=== PATIENT | female | born 2000 | race Caucasian/White ===

== ENCOUNTER 2021-07-09 07:40 | Outpatient (CLI) | payer OTHER ==
[~2021-07-09] VITALS: Ht 149.9 cm; Wt 86.8 kg
[~2021-07-09 07:40] MED LIST: UNRESOLVED CLARIFICATION ENTRY XX SCH
[2021-07-09] MEDS ORDERED: IRON SUCROSE 300 MG in NS 250 ML OVER 90 MIN. IV ONE (08:00)
[2021-07-09 08:05] VITALS: BP 133/75
[2021-07-09 08:44] VITALS: BP 132/70
[2021-07-09 09:50] VITALS: BP 140/66
== END 2021-07-09 10:00 | disposition home or self-care (01) ==
LOC: M INFU 07:40
PROVIDERS: ATTEND Registered Nurse
DX: O99.013 Anemia complicating pregnancy, third trimester (principal); D50.9 Iron deficiency anemia, unspecified; Z3A.37 37 weeks gestation of pregnancy
CPT/HCPCS: 96365; J1756

== ENCOUNTER 2021-07-11 13:28 | Outpatient (CLI) | payer OTHER ==
[~2021-07-11] VITALS: Ht 149.9 cm; Wt 86.7 kg
[2021-07-11 13:46] VITALS: BP 127/69
[2021-07-11] MEDS ORDERED: PRENTAB9 PO (13:48)
[2021-07-11] MEDS ORDERED: HOME MED LIST COMPLETE! XX SCH (13:50)
== END 2021-07-11 14:29 | disposition home or self-care (01) ==
LOC: M LDO 13:28
PROVIDERS: ATTEND Obstetrics & Gynecology
DX: O36.8130 Decreased fetal movements, third trimester, not applicable or unspecified (principal); Z3A.38 38 weeks gestation of pregnancy
CPT/HCPCS: 59025; 76815; G0463

== ENCOUNTER 2021-07-16 08:31 | Outpatient (CLI) | payer OTHER ==
[~2021-07-16] VITALS: Ht 149.9 cm; Wt 86.8 kg
[~2021-07-16 08:31] MED LIST changes: +IRON SUCROSE 300 MG in NS 250 ML OVER 90 MIN. IV ONE; +PRENTAB9 PO; -UNRESOLVED CLARIFICATION ENTRY XX SCH
[2021-07-16 09:04] VITALS: BP 136/64
[2021-07-16 10:45] VITALS: BP 146/67
== END 2021-07-16 10:45 | disposition home or self-care (01) ==
LOC: M INFU 08:31
PROVIDERS: ATTEND Registered Nurse
DX: D50.9 Iron deficiency anemia, unspecified (principal); Z3A.37 37 weeks gestation of pregnancy
CPT/HCPCS: 96365; 96366; J1756

== ENCOUNTER 2021-07-23 15:25 | Outpatient (CLI) | payer OTHER ==
[~2021-07-23] VITALS: Ht 149.9 cm; Wt 87.0 kg
[2021-07-23] MEDS ORDERED: IRON SUCROSE 300 MG in NS 250 ML OVER 90 MIN. IV ONE (15:30)
[2021-07-23 16:12] VITALS: BP 144/61
[2021-07-23 17:23] VITALS: BP 119/68
== END 2021-07-23 17:20 | disposition home or self-care (01) ==
LOC: M INFU 15:25
PROVIDERS: ATTEND Registered Nurse
DX: D50.9 Iron deficiency anemia, unspecified (principal); Z3A.37 37 weeks gestation of pregnancy
CPT/HCPCS: 96365; J1756

== ENCOUNTER 2021-07-24 11:58 | Inpatient (IN) | payer OTHER ==
[~2021-07-24] VITALS: Ht 149.9 cm; Wt 86.3 kg
[~2021-07-24 11:58] MED LIST changes: -IRON SUCROSE 300 MG in NS 250 ML OVER 90 MIN. IV ONE
[2021-07-24] MEDS ORDERED: OXYTOCIN DRIP 30 UNITS in IV 1 EA IV PRN ×4 (12:20)
[2021-07-24] MEDS ORDERED: METHYLERGONOVINE MALEATE 0.2 MG/ML VIAL (J2210) IM PRN (12:20)
[2021-07-24] MEDS ORDERED: LIDOCAINE 1% MDV 20ML VIAL INFIL PRN (12:20)
[2021-07-24] MEDS ORDERED: CARBOPROST TROMETHAMINE 250 MCG/ML AMP IM PRN (12:20)
[2021-07-24 12:25] VITALS: BP 117/62
[2021-07-24] MEDS ORDERED: HOME MED LIST COMPLETE! XX SCH (12:30)
[2021-07-24 13:22] LABS: HEMATOCRIT 30.9 % (36.0-47.0); HEMOGLOBIN 9.2 g/dl (12.0-15.5); MEAN CORPUSCULAR HEMOGLOBIN 21.5 pg (27.0-33.0); MEAN CORPUSCULAR HGB CONC 29.8 g/dl (32.0-36.5); MEAN CORPUSCULAR VOLUME 72.2 fl (80.0-96.0); PLATELET COUNT, AUTOMATED 228 10^3/uL (150-450); RED BLOOD COUNT 4.28 10^6/uL (4.00-5.40); WHITE BLOOD COUNT 7.1 10^3/uL (4.0-10.0)
[2021-07-24] MEDS ORDERED: LACTATED RINGER'S 1000 ML IV STA (13:57)
[2021-07-24] MEDS ORDERED: LR 1,000 ML IV SCH (14:00)
[2021-07-24] MEDS ORDERED: OXYTOCIN DRIP 30 UNITS in IV 1 EA IV SCH (14:00)
[2021-07-24] MEDS ORDERED: miSOPROStol 50MCG 1/2 TABLET PO ONE (14:00)
[2021-07-24 15:02] VITALS: BP 118/59
[2021-07-24 15:59] VITALS: BP 138/83
[2021-07-24 16:56] VITALS: BP 109/58
[2021-07-24] MEDS ORDERED: miSOPROStol 50MCG 1/2 TABLET PO SCH (19:30)
[2021-07-25] VITALS (61 sets, daily range): BP systolic 96–146; BP diastolic 51–87
[2021-07-25] MEDS ORDERED: PROMETHAZINE 25MG/ML 1ML VIAL IV ONE (00:50)
[2021-07-25] MEDS ORDERED: BUTORPHANOL 2 MG/ML INJ (J0595) IV ONE (00:50)
[2021-07-25] MEDS: LR 1,000 ML IV SCH ×2 (10:14→13:21)
[2021-07-25] MEDS ORDERED: OXYTOCIN INJ 10 UNITS/ML VIAL (J2590) IV ONE ×2 (10:45→20:35)
[2021-07-25] MEDS ORDERED: FENTANYL 2MCG/ML ROPIVACAINE 0.2% IN 0.9% NACL 100ML IVBAG As Ordered ONE (11:45)
[2021-07-25] MEDS ORDERED: LR 500 ML IV PRN (13:25)
[2021-07-25] MEDS ORDERED: ONDANSETRON 4MG/2ML VIAL IV PRN (13:25)
[2021-07-25] MEDS ORDERED: FENTANYL/ROPIVACAINE/NACL BAG 100 ML EPIDURAL SCH (13:25)
[2021-07-25] MEDS ORDERED: EPIDURAL/PCA KEYS XX PRN (13:25)
[2021-07-25] MEDS ORDERED: diphenhydrAMINE 50MG/ML VIAL (J1200) IV PRN (13:25)
[2021-07-25] MEDS ORDERED: NALOXONE INJ 0.4MG/1ML VIAL (J2310 PER 1MG) IV PRN (13:25)
[2021-07-25] MEDS ORDERED: ePHEDrine SULFATE 25 MG/5 ML(5MG/ML) SYRINGE IVP PRN (13:25)
[2021-07-25 20:15] LABS: CORD GAS ABE A -4.9; CORD GAS ABE V -6.1; CORD GAS HCO3 A 21.5 MEQ/L; CORD GAS HCO3 V 18.5 MEQ/L; CORD GAS O2 SAT A 40.5 %; CORD GAS O2 SAT V 69.1 %; CORD GAS PCO2 A 44.6 mmHg; CORD GAS PCO2 V 34.4 mmHg; CORD GAS PH A 7.301 UNITS; CORD GAS PH V 7.349 UNITS; CORD GAS PO2 A 20.9 mmHg; CORD GAS PO2 V 30.2 mmHg; CORD GAS SBC A 19.2 MEQ/L; CORD GAS SBC V 18.9 MEQ/L; CORD GAS TCO2 A 22.9 MEQ/L; CORD GAS TCO2 V 19.6 MEQ/L
[2021-07-25] MEDS ORDERED: DOCUSATE SODIUM 100MG CAPSULE PO PRN (20:35)
[2021-07-25] MEDS ORDERED: OXYTOCIN DRIP 30 UNITS in IV 1 EA IV ONE (20:35)
[2021-07-25] MEDS ORDERED: RHOGAM 300 MCG (1500 IU) INJ (J2790) IM SCH (20:35)
[2021-07-25] MEDS ORDERED: OXYTOCIN DRIP 30 UNITS in IV 1 EA IV SCH (20:35)
[2021-07-25] MEDS ORDERED: METHYLERGONOVINE MALEATE 0.2 MG TAB PO PRN (20:35)
[2021-07-25] MEDS ORDERED: LR 1,000 ML IV SCH (20:35)
[2021-07-25] MEDS ORDERED: MEASLES,MUMPS,RUBELLA VACCINE INJ (MMR-II) (90707) SC SCH (20:35)
[2021-07-25] MEDS ORDERED: ACETAMINOPHEN TAB 650MG DOSE (2X325MG) PO PRN (20:35)
[2021-07-25] MEDS ORDERED: ANUSOL HC CREAM 30GM TOP PRN (20:35)
[2021-07-25] MEDS ORDERED: MOM 30ML SUSPENSION UDC PO PRN (20:35)
[2021-07-25] MEDS: IBUPROFEN 600MG TAB PO PRN (21:35)
[2021-07-25] MEDS ORDERED: METHYLERGONOVINE MALEATE 0.2 MG/ML VIAL (J2210) IM ONE (22:15)
[2021-07-25] MEDS: ACETAMINOPHEN 500 MG TAB PO PRN (23:53)
[2021-07-26 06:08] VITALS: BP 123/59
[2021-07-26 08:24] LABS: HEMATOCRIT 25.7 % (36.0-47.0); HEMOGLOBIN 7.6 g/dl (12.0-15.5); MEAN CORPUSCULAR HEMOGLOBIN 21.8 pg (27.0-33.0); MEAN CORPUSCULAR HGB CONC 29.6 g/dl (32.0-36.5); MEAN CORPUSCULAR VOLUME 73.6 fl (80.0-96.0); PLATELET COUNT, AUTOMATED 205 10^3/uL (150-450); RED BLOOD COUNT 3.49 10^6/uL (4.00-5.40); WHITE BLOOD COUNT 13.8 10^3/uL (4.0-10.0)
[2021-07-26] MEDS: PRENATAL VITAMINS CHEWABLE TABLET PO SCH (09:15)
[2021-07-26] MEDS: ACETAMINOPHEN 500 MG TAB PO PRN (09:16)
[2021-07-26] MEDS: IBUPROFEN 600MG TAB PO PRN (15:59)
[2021-07-26 18:00] VITALS: BP 135/62
[2021-07-26] MEDS: DIBUCAINE 1% OINTMENT 30GM TOP PRN (22:08)
[2021-07-27] MEDS: IBUPROFEN 600MG TAB PO PRN ×2 (01:48→09:13)
[2021-07-27 06:15] VITALS: BP 130/76
[2021-07-27] MEDS ORDERED: PRENCHW PO (07:04)
[2021-07-27] MEDS ORDERED: COLA100C5 PO (07:04)
[2021-07-27] MEDS ORDERED: IBUP-1022 PO (07:04)
[2021-07-27] MEDS: PRENATAL VITAMINS CHEWABLE TABLET PO SCH (09:12)
[2021-07-27] MEDS: DIBUCAINE 1% OINTMENT 30GM TOP PRN (09:18)
== END 2021-07-27 13:30 | disposition home or self-care (01) | DRG 807 ==
LOC: M LDI 11:58 → M OBS 07-25 22:59
PROVIDERS: ADMIT Registered Nurse; ATTEND Obstetrics & Gynecology
PROC: 3E033VJ Introduction of Other Hormone into Peripheral Vein, Percutaneous Approach (ICD-10-PCS; 2021-07-24)
PROC: 10E0XZZ Delivery of Products of Conception, External Approach (ICD-10-PCS; principal; 2021-07-25)
PROC: 0HQ9XZZ Repair Perineum Skin, External Approach (ICD-10-PCS; 2021-07-25)
PROC: 10907ZC Drainage of Amniotic Fluid, Therapeutic from Products of Conception, Via Natural or Artificial Opening (ICD-10-PCS; 2021-07-25)
DX: O70.0 First degree perineal laceration during delivery (principal); Z37.0 Single live birth; Z3A.40 40 weeks gestation of pregnancy

== ENCOUNTER 2022-01-31 22:05 | Inpatient (IN) | payer OTHER ==
[~2022-01-31] VITALS: Ht 149.9 cm; Wt 68.1 kg
[~2022-01-31 22:05] MED LIST changes: +COLA100C5 PO; +IBUP-1022 PO; +PRENCHW PO
[2022-01-31 22:44] LABS: HEMATOCRIT 40.2 % (36.0-47.0); HEMOGLOBIN 12.3 g/dl (12.0-15.5); MEAN CORPUSCULAR HEMOGLOBIN 22.3 pg (27.0-33.0); MEAN CORPUSCULAR HGB CONC 30.6 g/dl (32.0-36.5); PLATELET COUNT, AUTOMATED 358 10^3/uL (150-450); RED BLOOD COUNT 5.51 10^6/uL (4.00-5.40); WHITE BLOOD COUNT 6.3 10^3/uL (4.0-10.0)
[2022-01-31 23:05] LABS: ETHYL ALCOHOL (ETHANOL) 0.254 % (0.000-0.010)
[2022-01-31 23:06] LABS: SALICYLATE LEVEL < 3.0 MG/DL (<30)
[2022-01-31 23:07] LABS: ACETAMINOPHEN LEVEL < 2.0 UG/ML (10.0-20.0); ALBUMIN 4.6 G/DL (3.2-5.2); ALKALINE PHOSPHATASE 108 U/L (46-116); ALT/SGPT 39 U/L (7.0-40); AST/SGOT 31 U/L (<34); BILIRUBIN,DIRECT 0.2 MG/DL (<0.4); BILIRUBIN,TOTAL 0.5 MG/DL (0.3-1.2); BLOOD UREA NITROGEN 9 MG/DL (9-23); CALCIUM LEVEL 9.1 MG/DL (8.5-10.1); CARBON DIOXIDE LEVEL 25 MMOL/L (20-31); CHLORIDE LEVEL 105 MMOL/L (98-107); CREATININE FOR GFR 0.51 MG/DL (0.55-1.30); GLOMERULAR FILTRATION RATE > 60.0 (>60); GLUCOSE, FASTING 108 MG/DL (60-100); POTASSIUM SERUM 3.8 MMOL/L (3.5-5.1); SODIUM LEVEL 143 MMOL/L (136-145); TOTAL PROTEIN 8.1 G/DL (5.7-8.2)
[2022-01-31 23:09] LABS: THYROID STIMULATING HORMONE 1.133 uIU/ML (0.55-4.78)
[2022-01-31] MEDS ORDERED: OLANZapine ORAL DISINTEGRATING TAB 5MG PO ONE (23:20)
[2022-01-31 23:26] LABS: RSV AMPLIFICATION NEGATIVE (NEGATIVE)
[2022-02-01 02:16] LABS: HCG, SERUM QUALITATIVE NEGATIVE (NEGATIVE)
[2022-02-01] MEDS: NICOTINE 21MG/24HR 1 EA TRANSDERMAL TD SCH (09:00)
[2022-02-01 12:34] LABS: AMPHETAMINES LEVEL URINE NEGATIVE (NEGATIVE); BARBITURATES URINE NEGATIVE (NEGATIVE); BENZODIAZEPINES URINE NEGATIVE (NEGATIVE); COCAINE METABOLITE URINE NEGATIVE (NEGATIVE); METHADONE URINE NEGATIVE (NEGATIVE); OPIATES URINE NEGATIVE (NEGATIVE)
[2022-02-01 12:35] LABS: CANNABINOIDS URINE NEGATIVE (NEGATIVE); PHENCYCLIDINE URINE NEGATIVE (NEGATIVE)
[2022-02-01] MEDS ORDERED: LORazepam 2 MG TAB PO PRN ×2 (14:40→15:55)
[2022-02-01] MEDS ORDERED: diphenhydrAMINE 25MG CAP PO PRN (14:40)
[2022-02-01] MEDS ORDERED: IBUPROFEN 400MG TAB PO PRN (14:40)
[2022-02-01] MEDS ORDERED: traZODone 50 MG TAB PO PRN (14:40)
[2022-02-01] MEDS ORDERED: MOM 30ML SUSPENSION UDC PO PRN (14:40)
[2022-02-01] MEDS ORDERED: MAALOX 30 ML SUSP *UDC PO PRN (14:40)
[2022-02-01] MEDS ORDERED: HOME MED LIST COMPLETE! XX SCH (16:25)
[2022-02-01 16:36] VITALS: BP 128/82
[2022-02-01] MEDS: MULTIVITAMINS/MINERALS THERAP 1 TAB PO SCH (18:05)
[2022-02-01] MEDS: FOLIC ACID 1MG TAB PO SCH (18:05)
[2022-02-01] MEDS ORDERED: THIAMINE 100 MG TAB PO SCH (21:00)
[2022-02-01] MEDS: THIAMINE 100 MG TAB PO SCH (22:34)
[2022-02-02 06:29] VITALS: BP 121/57
[2022-02-02 07:41] VITALS: BP 121/57
[2022-02-02] MEDS ORDERED: INFLUENZA QUADRIVALENT PF VACCINE 0.5ML SYRINGE IM.IMMUN ONE (09:00)
[2022-02-02] MEDS ORDERED: MULTIVITAMINS/MINERALS THERAP 1 TAB PO SCH (09:00)
[2022-02-02] MEDS ORDERED: FOLIC ACID 1MG TAB PO SCH (09:00)
[2022-02-02] MEDS: MULTIVITAMINS/MINERALS THERAP 1 TAB PO SCH (09:32)
[2022-02-02] MEDS: FOLIC ACID 1MG TAB PO SCH (09:32)
[2022-02-02] MEDS: THIAMINE 100 MG TAB PO SCH ×2 (09:32→21:38)
[2022-02-02] MEDS ORDERED: ALBUTEROL 90 MCG/ACT 8GM HFA INHALER INH PRN (09:40)
[2022-02-02] MEDS: SERTRALINE HCL 25 MG TABLET PO SCH (10:02)
[2022-02-02] MEDS: NICOTINE 21MG/24HR 1 EA TRANSDERMAL TD SCH (10:04)
[2022-02-02 16:19] VITALS: BP 133/84
[2022-02-02 22:42] LABS: GC DNA AMPLIFICATION NEGATIVE (NEGATIVE)
[2022-02-03 06:27] VITALS: BP 128/59
[2022-02-03] MEDS: FOLIC ACID 1MG TAB PO SCH (08:27)
[2022-02-03] MEDS: NALTREXONE 50 MG TAB PO SCH (08:27)
[2022-02-03] MEDS: NICOTINE 21MG/24HR 1 EA TRANSDERMAL TD SCH (08:27)
[2022-02-03] MEDS: MULTIVITAMINS/MINERALS THERAP 1 TAB PO SCH (08:27)
[2022-02-03] MEDS: SERTRALINE HCL 25 MG TABLET PO SCH (08:27)
[2022-02-03] MEDS: THIAMINE 100 MG TAB PO SCH ×2 (08:27→21:21)
[2022-02-03 09:00] VITALS: BP 141/93
[2022-02-03 16:09] VITALS: BP 134/76
[2022-02-04 06:17] VITALS: BP 116/72
[2022-02-04] MEDS: THIAMINE 100 MG TAB PO SCH (08:34)
[2022-02-04] MEDS: NICOTINE 21MG/24HR 1 EA TRANSDERMAL TD SCH (08:34)
[2022-02-04] MEDS: FOLIC ACID 1MG TAB PO SCH (08:34)
[2022-02-04] MEDS: MULTIVITAMINS/MINERALS THERAP 1 TAB PO SCH (08:34)
[2022-02-04] MEDS: NALTREXONE 50 MG TAB PO SCH (08:34)
[2022-02-04] MEDS: SERTRALINE HCL 25 MG TABLET PO SCH (08:34)
[2022-02-04 19:04] VITALS: BP 124/70
[2022-02-05] MEDS: MULTIVITAMINS/MINERALS THERAP 1 TAB PO SCH (08:26)
[2022-02-05] MEDS: FOLIC ACID 1MG TAB PO SCH (08:26)
[2022-02-05] MEDS: SERTRALINE HCL 25 MG TABLET PO SCH (08:26)
[2022-02-05] MEDS: NICOTINE 21MG/24HR 1 EA TRANSDERMAL TD SCH (08:26)
[2022-02-05] MEDS: NALTREXONE 50 MG TAB PO SCH (08:26)
[2022-02-05 10:05] VITALS: BP 105/70
[2022-02-05] MEDS ORDERED: VENTAER INH (11:39)
[2022-02-05] MEDS ORDERED: NALT50TA4 PO (11:39)
[2022-02-05] MEDS ORDERED: SERT25TA21 PO (11:39)
== END 2022-02-05 12:05 | disposition home or self-care (01) | DRG 885 ==
LOC: M ED 22:05 → EDBD 22:05 → M ED INP 02-01 14:40 → M PSY 02-01 16:38
PROVIDERS: ADMIT Student in an Organized Health Care Education/Training Program; ATTEND Psychiatry & Neurology Psychiatry
DX: F33.1 Major depressive disorder, recurrent, moderate (principal); R45.851 Suicidal ideations; Z63.0 Problems in relationship with spouse or partner; F10.129 Alcohol abuse with intoxication, unspecified; R30.0 Dysuria; J45.909 Unspecified asthma, uncomplicated; G43.909 Migraine, unspecified, not intractable, without status migrainosus; Z91.52 Personal history of nonsuicidal self-harm; Z83.3 Family history of diabetes mellitus; Z20.822 Contact with and (suspected) exposure to COVID-19